=== PATIENT | male | born 1965 | race Caucasian/White ===

== ENCOUNTER 2019-09-03 15:00 | Emergency (ER) | payer MEDICAID ==
--- NOTE | 2019-09-03 15:58 | CR ---
Chest: 2 views of the chest were obtained. Comparison: No previous chest x-ray. Heart size and mediastinum are normal. Lungs are clear with no acute parenchymal change. Bony structures appear unremarkable for the patient's age. Impression: 1. Nothing acute is seen on 2 view chest x-ray. Diagnostic code #1 This report was dictated in [place] Standard Time
[2019-09-03 16:27] LABS: BLOOD UREA NITROGEN,BUN 18 mg/dL (7.0-18.0); CARBON DIOXIDE,CO2 26.4 mmol/L (21.0-32.0); CHLORIDE,CL 102 mmol/L (98-107); GLUCOSE RANDOM 107 mg/dL (74-106); POTASSIUM,K 4.5 mmol/L (3.5-5.1); SODIUM,NA 141 mmol/L (136-148)
--- NOTE | 2019-09-03 16:44 | EDM.PDOC ---
ED HPI GENERAL MEDICAL PROBLEM - General Chief Complaint: Respiratory Problem Stated Complaint: SHORTNESS OF BREATH, COUGH Time Seen by Provider: 09/03/19 16:39 Source of Information: Reports: Patient History Limitations: Reports: No Limitations - History of Present Illness INITIAL COMMENTS - FREE TEXT/NARRATIVE: Patient is a 54-year-old male with no significant past medical history presenting with a chief complaint of cough and dyspnea. Patient states the dyspnea and cough started yesterday. 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 Patient states he tried to push through it and continued with a mily job which made his symptoms much worse. Patient states he feels very short of breath right now. Patient denies any fevers, lower extremity swelling, recent travel. Pmhx: None Pshx: None Family Hx: noncontributory Smoking history? no Etoh use? none Drug use? none In addition to that documented in the HPI above, the additional ROS was obtained : Constitutional: Denies fevers or chills Eyes: Denies vision changes ENMT: Denies sore throat CV: Denies chest pain Resp: Per HPI GI: Denies vomiting or diarrhea : Denies painful urination MSK: Denies recent trauma Skin: Denies new rashes Neuro: Denies new numbness or tingling or weakness Endocrine: Denies unexpected weight loss Heme: Denies bleeding disorders I have reviewed the triage vital signs Const: Well nourished, well developed, appears stated age. Mildly anxious Eyes: PERRL, no conjunctival injection HENT: NCAT, Neck supple without meningismus CV: RRR, Warm, well-perfused extremities RESP: Increased respiratory effort clear lungs to auscultation bilaterally. GI: soft, non-tender, non-distended, no masses MSK: No gross deformities appreciated Skin: Warm, dry. No rashes Neuro: Alert, naturalization examiner II-XII grossly intact. Sensation and motor function of extremities grossly intact. Psych: Appropriate mood and affect Assessment and plan: Patient is a 54-year-old male presenting with shortness of breath. Patient has clear lungs on exam. Patient's chest x-ray and CT are both within normal limits. Patient had no laboratory abnormalities. Patient continues to be dyspneic. Patient does report on reexamination that he used a vape 2 weeks ago and several days ago smoked a CBD cigarette. Patient was offered admission for further evaluation of his respiratory status and monitoring. Patient states is not 1 to be admitted and wishes to go home. Patient will sign AGAINST MEDICAL ADVICE and be given return precautions. Other considerations were of congestive heart failure which would have been seen on CT scan. Believe this is acute coronary syndrome as the patient does not have chest pain and primarily shortness of breath which is worse with position changes as well as cough. lungs Pain Score (Numeric/FACES): 5 - Related Data Allergies Allergy/AdvReac Type Severity Reaction Status Date / Time No Known Allergies Allergy Verified 09/03/19 15:07 Home Meds: Home Meds . [No Known Home Meds] 09/03/19 [History] Past Medical History - Past Health History Medical/Surgical History: Denies Medical/Surgical History Musculoskeletal History: Reports: Other (See Below) Other Musculoskeletal History: Left Hip Pain Psychiatric History: Reports: PTSD - Infectious Disease History Infectious Disease History: Reports: Chicken Pox, Measles, Mumps, Scarlet Fever - Past Surgical History Musculoskeletal Surgical History: Reports: Other (See Below) Other Musculoskeletal Surgeries/Procedures:: Left Hip Social & Family History - Family History Family Medical History: Noncontributory - Tobacco Use Smoking Status *Q: Never Smoker - Alcohol Use Days Per Week of Alcohol Use: 7 Number of Drinks Per Day: 6 Total Drinks Per Week: 42 - Recreational Drug Use Recreational Drug Use: No ED ROS GENERAL - Review of Systems Review Of Systems: See Below ED EXAM, GENERAL - Physical Exam Exam: See Below Course - Vital Signs Last Recorded V/S: Last Vital Signs Temp 36.3 C 09/03/19 15:03 Pulse 106 H 09/03/19 15:03 Resp 22 H 09/03/19 15:03 BP 142/100 H 09/03/19 15:03 Pulse Ox 99 09/03/19 15:03 - Orders/Labs/Meds Orders: Active Orders 24 hr Category Date Time Status EKG Documentation Completion [RC] STAT Care 09/03/19 15:30 Active RT Aerosol Therapy [RC] ASDIRECTED Care 09/03/19 18:19 Active Labs: Laboratory Tests 09/03/19 09/03/19 09/03/19 Range/Units 15:43 15:43 15:43 WBC 7.66 (4.0-11.0) K/uL RBC 4.47 L (4.50-5.90) M/uL Hgb 14.7 (13.0-17.0) g/dL Hct 41.0 (38.0-50.0) % MCV 91.7 (80.0-98.0) fL MCH 32.9 H (27.0-32.0) pg MCHC 35.9 (31.0-37.0) g/dL RDW Std Deviation 40.9 (28.0-62.0) fl RDW Coeff of [place] 13 (11.0-15.0) % Plt Count 191 (150-400) K/uL MPV 9.70 (7.40-12.00) fL Neut % (Auto) 82.1 H (48.0-80.0) % Lymph % (Auto) 6.4 L (16.0-40.0) % [place] % (Auto) 10.2 (0.0-15.0) % Eos % (Auto) 0.9 (0.0-7.0) % Baso % (Auto) 0.4 (0.0-1.5) % Neut # (Auto) 6.3 H (1.4-5.7) K/uL Lymph # (Auto) 0.5 L (0.6-2.4) K/uL [place] # (Auto) 0.8 (0.0-0.8) K/uL Eos # (Auto) 0.1 (0.0-0.7) K/uL Baso # (Auto) 0.0 (0.0-0.1) K/uL D-Dimer, Quantitative 0.49 (0.0-0.50) mg/L FEU Sodium 141 (136-148) mmol/L Potassium 4.5 (3.5-5.1) mmol/L Chloride 102 (98-107) mmol/L Carbon Dioxide 26.4 (21.0-32.0) mmol/L BUN 18 (7.0-18.0) mg/dL Creatinine 0.8 (0.8-1.3) mg/dL Est Cr Clr Drug Dosing 94.15 mL/min Estimated GFR (MDRD) > 60.0 ml/min Glucose 107 H (74-106) mg/dL Calcium 10.0 (8.5-10.1) mg/dL Total Bilirubin 0.7 (0.2-1.0) mg/dL AST 289 H (15-37) IU/L ALT 214 H (14-63) IU/L Alkaline Phosphatase 104 (46-116) U/L Troponin I < 0.050 (0.000-0.056) ng/mL Total Protein 8.2 (6.4-8.2) g/dL Albumin 4.5 (3.4-5.0) g/dL Globulin 3.7 (2.6-4.0) g/dL Albumin/Globulin Ratio 1.2 (0.9-1.6) Meds: Medications Discontinued Medications Generic Name Dose Route Start Last Admin Trade Name Freq PRN Reason Stop Dose Admin Albuterol 2.5 mg 09/03/19 18:19 Proventil Neb Soln NEB 09/03/19 18:20 ONETIME ONE Iopamidol 50 ml 09/03/19 17:37 09/03/19 17:37 Isovue Multipack-370 (76%) IVPUSH 09/03/19 17:38 50 ml ONETIME STA Administration Prednisone 40 mg 09/03/19 18:37 Prednisone PO 09/03/19 18:38 ONETIME ONE Departure - Departure Time of Disposition: 18:41 Disposition: Against Medical Advice 07 Clinical Impression: Shortness of breath - Discharge Information Instructions: Shortness of Breath, Adult Referrals: PCP,None [Primary Care Provider] - Forms: ED Department Discharge Sepsis Event Note - Evaluation Sepsis Screening Result: No Definite Risk - Focused Exam Vital Signs: Vital Signs Temp Pulse Resp BP Pulse Ox 09/03/19 15:03 36.3 C 106 H 22 H 142/100 H 99 Date Exam was Performed: 09/03/19 Time Exam was Performed: 18:40 - My Orders Last 24 Hours: My Active Orders 09/03/19 15:30 EKG Documentation Completion [RC] STAT 09/03/19 18:19 RT Aerosol Therapy [RC] ASDIRECTED - Assessment/Plan Last 24 Hours: My Active Orders 09/03/19 15:30 EKG Documentation Completion [RC] STAT 09/03/19 18:19 RT Aerosol Therapy [RC] ASDIRECTED
[2019-09-03] MEDS ORDERED: Iopamidol 755 MG/ML 500 ML Multipack Bottle IVPUSH STA (17:37)
--- NOTE | 2019-09-03 18:11 | CT ---
CT chest Technique: Multiple axial sections through the chest were obtained. Intravenous contrast was utilized. Comparison: No previous chest CT is available, previous chest x-ray performed earlier on the same date (3:32 PM). Findings: Pulmonary arteries are moderately well-opacified. No filling defects are seen within the main or segmental branches. Smaller subsegmental pulmonary emboli could be missed. Aorta shows no aneurysm. Minimal coronary artery calcification is seen. Visualized portions of the upper abdominal structures shows no discrete abnormality. Lungs show no acute parenchymal change. Bone window settings were reviewed which shows no acute osseous finding. Impression: 1. Pulmonary arteries show no evidence of pulmonary embolism within the main or segmental branches. Smaller subsegmental pulmonary could be missed on this exam. 2. Minimal coronary artery calcification. 3. No acute abnormality is appreciated on CT study of the chest. Diagnostic code #2 Study was dictated in [place] Standard Time
[2019-09-03] MEDS ORDERED: Albuterol 0.5% 5 MG/ML Neb Soln 20 ML Bottle NEB ONE (18:19)
[2019-09-03] MEDS ORDERED: predniSONE 20 MG Tab PO ONE (18:37)
[2019-09-03] MEDS ORDERED: Albuterol 0.083% 2.5 MG/3 ML Neb Soln ONE (19:03)
[2019-09-03] MEDS ORDERED: Albuterol 0.083% 2.5 MG/3 ML Neb Soln NEB ONE (19:05)
== END 2019-09-03 19:37 | disposition left against medical advice (07) ==
LOC: MW.ED 15:00
DX: R06.02 Shortness of breath (principal); Z87.891 Personal history of nicotine dependence
CPT/HCPCS: 36415; 71046; 71275; 80053; 84484; 85025; 85379; 93005; 94640; 99285; A9270; Q9967; 99283